=== PATIENT | male | born 1980 | race Caucasian/White ===

== ENCOUNTER 2022-04-01 23:19 | Emergency (ER) | payer SELFPAY ==
[~2022-04-01] VITALS: Ht 180.3 cm; Wt 113.4 kg
--- NOTE | 2022-04-02 00:39 | NUR ---
PT SEEN LEAVING THE ER BY STAFF. INFORMED
== END 2022-04-02 00:47 | disposition home or self-care (01) ==
LOC: ER 23:23
DX: R04.0 Epistaxis (principal)
CPT/HCPCS: 71045; 99283